=== PATIENT | female | born 1995 | race Caucasian/White ===

== ENCOUNTER → 2017-08-08 | Outpatient (CLI) | payer OTHER ==
--- NOTE | 2017-08-08 15:34 | WOMENS IMAGING REPORT ---
EXAM DESCRIPTION: TRANSVAGINAL ULTRASOUND COMPLETED DATE/TIME: 08/08/2017 2:21 pm REASON FOR STUDY: MENORRHAGIA WITH REGULAR CYCLE; N92.0 N92.0 EXCESSIVE AND FREQUENT MENSTRUATION W ITH REGULAR CYCLE COMPARISON: None. TECHNIQUE: Dynamic and static grayscale images acquired of the pelvis via transvaginal approach and recorded on PACS. Additional selected color Doppler and spectral images recorded. LIMITATIONS: None. FINDINGS: UTERUS: Contour normal. No mass. ENDOMETRIAL STRIPE: No focal or generalized thickening. No masses. CERVIX: No nabothian cysts. RIGHT OVARY: No abnormal masses. RIGHT OVARY DOPPLER: Normal arterial vascular flow without evidence for torsion. LEFT OVARY: No abnormal masses. LEFT OVARY DOPPLER: Normal arterial vascular flow without evidence for torsion. FREE FLUID: Small amount. OTHER: No other significant finding. MEASUREMENTS: UTERUS: 8.5 x 3.9 x 5.3 cm ENDOMETRIAL STRIPE: 8 mm RIGHT OVARY: 3.3 x 2.2 x 2.2 cm LEFT OVARY: 2.9 x 2.3 x 3.0 cm IMPRESSION: NORMAL TRANSVAGINAL PELVIC ULTRASOUND. TECHNICAL DOCUMENTATION: JOB ID: [id number]- All Rights Reserved
== END ==
LOC: WI 14:04
PROVIDERS: ATTEND Physician Assistant
DX: N92.0 Excessive and frequent menstruation with regular cycle (principal)
CPT/HCPCS: 76830

== ENCOUNTER 2017-12-24 14:28 | Emergency (ER) | payer OTHER ==
[2017-12-24 14:51] VITALS: BP 114/98
[2017-12-24] MEDS ORDERED: TRAMADOL HCL 50 MG TABLET PO ONE (15:03)
--- NOTE | 2017-12-24 15:08 | ER Document Report ---
ED General - General Chief Complaint: Abdominal Pain Stated Complaint: LOWER ABDOMINAL PAIN Time Seen by Provider: 12/24/17 14:56 Notes: 21-year-old female PMH severe menstrual cramps here with complaints of lower abdominal cramping that has been ongoing for the past few days. The patient has been having these severe abdominal cramping with every menstrual cycle for the past 3 or 4 years. She has been taking ibuprofen and Midol with minimal relief. She does not have any nausea vomiting diarrhea. She usually gets this severe abdominal cramping in the middle of her cycle. She has been to the ED for this several times and reports that she has received vaginal ultrasounds that have not shown any emergency finding. She has seen an [facility] for this and they put her on control but the control made her bleed for an entire month straight so she stopped taking it. TRAVEL OUTSIDE OF THE [place] IN LAST 30 DAYS: No - Related Data Allergies/Adverse Reactions: No Known Allergies Allergy (Verified 12/24/17 14:49) Past Medical History - Social History Smoking Status: Never Smoker Chew tobacco use (# tins/day): No Frequency of alcohol use: None Drug Abuse: None Family History: Reviewed & Not Pertinent Patient has suicidal ideation: No Patient has homicidal ideation: No Pulmonary Medical History: Reports: Hx Asthma - as child Renal/ Medical History: Denies: Hx Peritoneal Dialysis Past Surgical History: Reports: Hx Orthopedic Surgery - Bunionectomy, Achilles tendon release - Immunizations Immunizations up to date: Yes Hx Diphtheria, Pertussis, Tetanus Vaccination: Yes Review of Systems - Review of Systems Notes: See history of present illness for pertinent positive review of systems; otherwise all review of systems have been reviewed and are negative Physical Exam - Vital signs Vitals: Temp Pulse Resp BP Pulse Ox 98.1 F 85 20 114/98 H 98 12/24/17 14:42 12/24/17 14:42 12/24/17 14:42 12/24/17 14:42 12/24/17 14:42 - Notes Notes: PHYSICAL EXAMINATION: GENERAL: Well-appearing and in no acute distress. HEAD: Atraumatic, normocephalic. EYES: Pupils equal round and reactive to light, extraocular movements intact, sclera anicteric, conjunctiva are normal. ENT: nares patent, oropharynx clear without exudates. Moist mucous membranes. NECK: Normal range of motion, supple without lymphadenopathy LUNGS: CTAB and equal. No wheezes rales or rhonchi. HEART: Regular rate and rhythm without murmurs ABDOMEN: Soft, minimal to no tenderness (patient states she does not have the severe pain at this time). No facial grimacing/wincing upon palpation. No guarding, no rebound. EXTREMITIES: Normal range of motion, no pitting edema. No cyanosis. NEUROLOGICAL: Cranial nerves grossly intact. Normal sensory/motor exams. PSYCH: Normal mood, normal affect. SKIN: Warm, Dry, normal turgor, no rashes or lesions noted Course - Re-evaluation Re-evalutation: 12/24/17 15:08 MEDICAL DECISION MAKING: Concern for severe menstrual cramps Low clinical suspicion for torsion TOA PID or other emergency medical condition Given patient states she has the same pain intensity with her periods, low suspicion for other etiology Will give her a dose of tramadol here and prescription for same; she states Flexeril has helped for this so Rx for this too Patient understands and agrees to the plan of care - Vital Signs Vital signs: Temp Pulse Resp BP Pulse Ox 98.1 F 85 20 114/98 H 98 12/24/17 14:42 12/24/17 14:42 12/24/17 14:42 12/24/17 14:42 12/24/17 14:42 Discharge - Discharge Clinical Impression: Abdominal cramping Condition: Good Disposition: HOME, SELF-CARE Additional Instructions: You were seen in the emergency department at [facility]. If you were given any sedating medications (such as the medication prescribed today), be sure not to operate heavy machinery (example - driving) and be sure you are not too sedated to walk appropriately. Please followup with your primary physician in the next few days for further management/evaluation. Please return to the emergency department for worsening of symptoms or any symptom that you deem to be concerning or life-threatening. Thank you for allowing us to be part of your care. Prescriptions: Tramadol HCl 50 mg PO Q8HP PRN #14 tablet PRN Reason: Cyclobenzaprine HCl [Flexeril 5 mg Tablet] 5 mg PO TID #15 tablet
== END 2017-12-24 15:13 | disposition home or self-care (01) ==
LOC: ER 14:28
DX: R10.30 Lower abdominal pain, unspecified (principal)
CPT/HCPCS: 99283

== ENCOUNTER 2018-06-23 11:29 | Emergency (ER) | payer OTHER ==
[2018-06-23 11:44] VITALS: BP 130/83
--- NOTE | 2018-06-23 13:24 | ER Document Report ---
ED Medical Screen (RME) - General Chief Complaint: Pelvic Pain Stated Complaint: ABDOMINAL PAIN, BACK PAIN Time Seen by Provider: 06/23/18 12:55 Mode of Arrival: Ambulatory Information source: Patient Notes: This is a 22-year-old female 0 who presents with pelvic pain. Patient does have a long history of pain with menses usually in the first 2 days. She has had ultrasounds in the past which have been relatively benign. She does have a significant family history of fibroids (her sister had surgery for fibroids and ultimately a hysterectomy). Patient states that the pain was so severe she was getting pain down both legs and she had taken 6 x 200 mg tablets of ibuprofen. Patient states she took the medicine at 9:30 AM and did not get relief until noon. Otherwise, patient is on tramadol as needed as well as a muscle relaxer. She has been evaluated by women's health care in the past and was put on control pills at one time but states that it just worsened the bleeding. TRAVEL OUTSIDE OF THE [place] IN LAST 30 DAYS: No - Related Data Allergies/Adverse Reactions: No Known Allergies Allergy (Verified 12/24/17 14:49) Past Medical History Pulmonary Medical History: Reports: Hx Asthma - as child Renal/ Medical History: Denies: Hx Peritoneal Dialysis Past Surgical History: Reports: Hx Orthopedic Surgery - Bunionectomy, Achilles tendon release - Immunizations Immunizations up to date: Yes Hx Diphtheria, Pertussis, Tetanus Vaccination: Yes Physical Exam - Vital signs Vitals: Temp Pulse Resp BP Pulse Ox 98.3 F 90 16 130/83 H 97 06/23/18 11:43 06/23/18 11:43 06/23/18 11:43 06/23/18 11:43 06/23/18 11:43 Course - Vital Signs Vital signs: Temp Pulse Resp BP Pulse Ox 98.3 F 90 16 130/83 H 97 06/23/18 11:43 06/23/18 11:43 06/23/18 11:43 06/23/18 11:43 06/23/18 11:43 Doctor's Discharge - Discharge Referrals: HERNAN DALTON PA-C [Primary Care Provider] - Follow up as needed
[2018-06-23 14:02] LABS: ABSOLUTE MONOCYTES (AUTO) 0.4 10^3/uL (0.1-1.4); ABSOLUTE NEUT (AUTO) 9.2 10^3/uL (1.7-8.2); BASOPHILS % (AUTO) 0.2 % (0-2); EOSINOPHILS % (AUTO) 0.2 % (0-6); HEMATOCRIT 44.7 % (36.0-47.0); HEMOGLOBIN 15.7 g/dL (12.0-15.5); LYMPHOCYTES % (AUTO) 9.3 % (13-45); MEAN CORPUSCULAR HEMOGLOBIN 29.4 pg (27.0-33.4); MEAN CORPUSCULAR HGB CONC 35.1 g/dL (32.0-36.0); MEAN CORPUSCULAR VOLUME 84 fl (80-97); MONOCYTES % (AUTO) 3.4 % (3-13); PLATELET COUNT 207 10^3/uL (150-450); RED BLOOD COUNT 5.34 10^6/uL (3.72-5.28); RED CELL DISTRIBUTION WIDTH 13.8 % (11.5-14.0); SEGMENTED NEUTROPHILS % (AUTO) 86.9 % (42-78); TOTAL CELLS COUNTED % (AUTO) 100 %; WHITE BLOOD COUNT 10.5 10^3/uL (4.0-10.5)
[2018-06-23 14:15] LABS: ALANINE AMINOTRANSFERASE 28 U/L (9-52); ALBUMIN 4.6 g/dL (3.5-5.0); ALKALINE PHOSPHATASE 97 U/L (38-126); ANION GAP 14 (5-19); ASPARTATE AMINO TRANSFERASE 28 U/L (14-36); BILIRUBIN,DIRECT 0.2 mg/dL (0.0-0.4); BILIRUBIN,TOTAL 0.7 mg/dL (0.2-1.3); BLOOD UREA NITROGEN 15 mg/dL (7-20); CARBON DIOXIDE 22 mmol/L (22-30); CHLORIDE 106 mmol/L (98-107); GLUCOSE 88 mg/dL (75-110); POTASSIUM 4.7 mmol/L (3.6-5.0); SODIUM 142.3 mmol/L (137-145); TOTAL PROTEIN 7.9 g/dL (6.3-8.2)
--- NOTE | 2018-06-23 14:58 | ER Document Report ---
ED General - General Chief Complaint: Pelvic Pain Stated Complaint: ABDOMINAL PAIN, BACK PAIN Time Seen by Provider: 06/23/18 12:55 Mode of Arrival: Ambulatory TRAVEL OUTSIDE OF THE [place] IN LAST 30 DAYS: No - HPI Patient complains to provider of: Abdominal pain back pain Notes: Patient was seen by the triage provider note was provided below this is a 22-year-old female 0 who presents with pelvic pain. Patient does have a long history of pain with menses usually in the first 2 days. She has had ultrasounds in the past which have been relatively benign. She does have a significant family history of fibroids (her sister had surgery for fibroids and ultimately a hysterectomy). Patient states that the pain was so severe she was getting pain down both legs and she had taken 6 x 200 mg tablets of ibuprofen. Patient states she took the medicine at 9:30 AM and did not get relief until noon. Otherwise, patient is on tramadol as needed as well as a muscle relaxer. She has been evaluated by women's health care in the past and was put on control pills at one time but states that it just worsened the bleeding. Patient does cooperate with this story. Patient states now currently pain is better. Patient denies any vaginal discharge denies being is that she is not sexually active. Patient denies any fevers chills nausea vomiting diarrhea. - Related Data Allergies/Adverse Reactions: No Known Allergies Allergy (Verified 12/24/17 14:49) Past Medical History - General Information source: Patient - Social History Smoking Status: Never Smoker Family History: Reviewed & Not Pertinent Patient has suicidal ideation: No Patient has homicidal ideation: No Pulmonary Medical History: Reports: Hx Asthma - as child Renal/ Medical History: Denies: Hx Peritoneal Dialysis Past Surgical History: Reports: Hx Orthopedic Surgery - Bunionectomy, Achilles tendon release - Immunizations Immunizations up to date: Yes Hx Diphtheria, Pertussis, Tetanus Vaccination: Yes Review of Systems - Review of Systems Constitutional: No symptoms reported EENT: No symptoms reported Cardiovascular: No symptoms reported Respiratory: No symptoms reported Gastrointestinal: Abdominal pain Genitourinary: No symptoms reported Female Genitourinary: No symptoms reported Musculoskeletal: No symptoms reported Skin: No symptoms reported Hematologic/Lymphatic: No symptoms reported Neurological/Psychological: No symptoms reported -: Yes All other systems reviewed and negative Physical Exam - Vital signs Vitals: Temp Pulse Resp BP Pulse Ox 98.3 F 90 16 130/83 H 97 06/23/18 11:43 06/23/18 11:43 06/23/18 11:43 06/23/18 11:43 06/23/18 11:43 Interpretation: Normal - General General appearance: Appears well, Alert - HEENT Head: Normocephalic, Atraumatic Eyes: Normal Pupils: PERRL - Respiratory Respiratory status: No respiratory distress Chest status: Nontender Breath sounds: Normal Chest palpation: Normal - Cardiovascular Rhythm: Regular Heart sounds: Normal auscultation Murmur: No - Abdominal Inspection: Normal Distension: No distension Bowel sounds: Normal Tenderness: Nontender Organomegaly: No organomegaly - Back Back: Normal, Nontender - Extremities General upper extremity: Normal inspection, Nontender, Normal color, Normal ROM , Normal temperature General lower extremity: Normal inspection, Nontender, Normal color, Normal ROM , Normal temperature, Normal weight bearing. No: Vikas's sign - Neurological Neuro grossly intact: Yes Cognition: Normal Orientation: AAOx4 [place] Coma Scale Eye Opening: Spontaneous [place] Coma Scale Verbal: Oriented Shalini Coma Scale Motor: Obeys Commands [place] Coma Scale Total: 15 Speech: Normal Motor strength normal: LUE, RUE, LLE, RLE Sensory: Normal - Psychological Associated symptoms: Normal affect, Normal mood - Skin Skin Temperature: Warm Skin Moisture: Dry Skin Color: Normal Course - Re-evaluation Re-evalutation: 06/23/18 23:56 The patient presents with abdominal pain without signs of peritonitis or other life-threatening or serious etiology. The patient appears stable for discharge and has been instructed to return immediately if the symptoms worsen in any way , or in 8-12hr if not improved for re-evaluation. The patient has been instructed to return if the symptoms worsen or change in any way. No acute pathology highly recommend patient follow-up with [facility]. Patient will be discharged home. - Vital Signs Vital signs: Temp Pulse Resp BP Pulse Ox 98.3 F 90 16 130/83 H 97 06/23/18 11:43 06/23/18 11:43 06/23/18 11:43 06/23/18 11:43 06/23/18 11:43 - Laboratory Result Diagrams: 06/23/18 13:38 06/23/18 13:38 Laboratory results interpreted by me: 06/23/18 06/23/18 13:38 15:05 RBC 5.34 H Hgb 15.7 H Seg Neutrophils % 86.9 H Lymphocytes % 9.3 L Absolute Neutrophils 9.2 H Urine Protein 30 H Urine Ketones 80 H Urine Blood LARGE H Discharge - Discharge Clinical Impression: Abdominal pain Qualifiers: Abdominal location: lower abdomen, unspecified Qualified Code(s): R10.30 - Lower abdominal pain, unspecified Condition: Good Disposition: HOME, SELF-CARE Instructions: Abdominal Pain ([facility]), [facility] Doctors Additional Instructions: Your laboratory studies ultrasound did not show any critical findings at this time. I would highly recommend following up with [facility]. I recommend using Tylenol Motrin therapy for initial pain control method for your abdominal pain. He may use the Ultram for severe pain. Return to the ER if symptoms worsen or if you develop fevers. Prescriptions: Ibuprofen [Motrin 600 mg Tablet] 600 mg PO Q8HP PRN #21 tablet PRN Reason: Tramadol HCl [Ultram 50 mg Tablet] 50 mg PO ASDIR PRN #14 tablet PRN Reason: Referrals: HERNAN DALTON PA-C [Primary Care Provider] - Follow up as needed
[2018-06-23 15:44] LABS: APPEARANCE,URINE SLIGHTLY-CLOUDY; BILIRUBIN,URINE NEGATIVE (NEGATIVE); COLOR,URINE YELLOW; GLUCOSE, URINE NEGATIVE (NEGATIVE); KETONES,URINE 80 mg/dL (NEGATIVE); LEUKOCYTE ESTERASE,URINE NEGATIVE (NEGATIVE); NITRITE,URINE NEGATIVE (NEGATIVE); PROTEIN,URINE 30 mg/dL (NEGATIVE); URINE SPECIFIC GRAVITY 1.029; UROBILINOGEN,URINE NEGATIVE mg/dL (<2.0)
--- NOTE | 2018-06-23 17:23 | RADIOLOGY REPORT (SQ) ---
EXAM DESCRIPTION: U/S NON OB PEL W/DOPPLER COMPLETED DATE/TIME: 06/23/2018 4:14 pm REASON FOR STUDY: lower pelvic pain COMPARISON: 08/08/2017. TECHNIQUE: Dynamic and static grayscale images acquired of the pelvis via transabdominal approach an d recorded on PACS. Additional selected color Doppler and spectral images recorded. LIMITATIONS: None. FINDINGS: UTERUS: Contour normal. No mass. ENDOMETRIAL STRIPE: No focal or generalized thickening. No masses. CERVIX: No nabothian cysts. RIGHT OVARY AND DOPPLER: Normal size. No worrisome masses. Normal arterial vascular flow without evid ence for torsion. LEFT OVARY AND DOPPLER: Normal size. No worrisome masses. Normal arterial vascular flow without evide nce for torsion. FREE FLUID: None noted. OTHER: No other significant finding. MEASUREMENTS: UTERUS: 4.7 x 4.9 x 8.0 cm. ENDOMETRIAL STRIPE: 8 mm. RIGHT OVARY: 2.7 x 3.2 x 3.6 cm. LEFT OVARY: 1.6 x 2.8 x 3.1 cm. IMPRESSION: NORMAL PELVIC ULTRASOUND BY TRANSABDOMINAL TECHNIQUE. TECHNICAL DOCUMENTATION: JOB ID: [id number]- All Rights Reserved Rev-01/04 Reading location - IP/workstation name: [email or web address]
[2018-06-23] MEDS ORDERED: TRAMADOL HCL 50 MG TABLET PO ONE (18:31)
== END 2018-06-23 19:01 | disposition home or self-care (01) ==
LOC: ER 11:29
DX: R10.30 Lower abdominal pain, unspecified (principal); R10.2 Pelvic and perineal pain; M54.9 Dorsalgia, unspecified
CPT/HCPCS: 36415; 76856; 80053; 81001; 84702; 85025; 93976; 99284

== ENCOUNTER 2018-09-26 02:58 | Emergency (ER) | payer OTHER ==
[2018-09-26 03:16] VITALS: BP 134/99
== END 2018-09-26 04:34 | disposition left against medical advice (07) ==
LOC: ER 02:58
DX: Z53.21 Procedure and treatment not carried out due to patient leaving prior to being seen by health care provider (principal)